=== PATIENT | male | born 2000 | race African-American/Black ===

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

== ENCOUNTER 2019-12-10 08:54 | Emergency (ER) | payer OTHER ==
[~2019-12-10 08:54] MED LIST: AZIT500T PO; CEFI200S PO; METR500T PO
== END 2019-12-10 09:40 | disposition left against medical advice (07) ==
LOC: ER 08:54
DX: K08.89 Other specified disorders of teeth and supporting structures (principal); Z53.21 Procedure and treatment not carried out due to patient leaving prior to being seen by health care provider